=== PATIENT | male | born 1935 | race Caucasian/White ===

== ENCOUNTER 2018-04-19 07:19 | Inpatient (IN) | payer MEDICARE, OTHER ==
[2018-04-19] MEDS: CEFAZOLIN 2 GM/50 ML (PMX) 50 ML IVPB (06:00)
[2018-04-19] MEDS: TRANEXAMIC ACID 1GM/100ML(PMX) 100 ML IVPB ×2 (06:00→12:59)
[~2018-04-19 07:19] MED LIST: CEFAZOLIN 1 GM INJ; DESFLURANE 15 MIN; ROCURONIUM 50 MG INJ; SUCCINYLCHOLINE CHLORIDE 100 MG/5 ML SYG IV
[2018-04-19] MEDS: DEXAMETHASONE 1 MG TAB PO (08:43)
[2018-04-19] MEDS: GABAPENTIN 300 MG CAP PO ×2 (08:43→20:24)
[2018-04-19] MEDS ORDERED: MIDAZOLAM 1 MG/ML 2 ML INJ (09:29)
[2018-04-19] MEDS ORDERED: THROMBIN 5000 UNIT VIAL (09:57)
[2018-04-19] MEDS ORDERED: CA CHLORIDE 10% 10 ML SYRINGE (09:57)
[2018-04-19] MEDS ORDERED: POLYMYXIN/BACITRACIN 1L IRRIG (09:57)
[2018-04-19] MEDS ORDERED: BUPIVACAINE 0.5%/EPI (SDV) 30 ML INJ (09:57)
[2018-04-19] MEDS ORDERED: ONDANSETRON 4 MG INJ (10:58)
[2018-04-19] MEDS ORDERED: DEXAMETHASONE 4 MG/ML 5 ML INJ (10:58)
[2018-04-19] MEDS ORDERED: LIDOCAINE 2% (SDV) 5 ML INJ (11:15)
[2018-04-19] MEDS ORDERED: ETOMIDATE 20 MG INJ (11:15)
[2018-04-19] MEDS: ACETAMINOPHEN 500 MG TAB PO ×4 (12:00→23:56)
[2018-04-19] MEDS: CEFAZOLIN 1 GM/50 ML (PMX) 50 ML IVPB ×2 (12:00→20:21)
[2018-04-19] MEDS ORDERED: LOPERAMIDE 2 MG CAP PO (12:00)
[2018-04-19] MEDS ORDERED: HYDROmorphONE 1 MG/ML SYG IV (12:00)
[2018-04-19] MEDS ORDERED: ZOLPIDEM 5 MG TAB PO (12:00)
[2018-04-19] MEDS ORDERED: NACL 0.9% 3 ML SYG IV (12:00)
[2018-04-19] MEDS ORDERED: KETOROLAC 15 MG INJ IV (12:00)
[2018-04-19] MEDS ORDERED: DIPHENHYDRAMINE 50 MG INJ IV (12:00)
[2018-04-19] MEDS: DEXAMETHASONE 2 MG TAB PO ×4 (12:00→23:56)
[2018-04-19] MEDS ORDERED: oxyCODONE 5 MG TAB PO ×3 (12:00)
[2018-04-19] MEDS ORDERED: SUGAMMADEX SODIUM 200 MG/2 ML VIAL IV (12:17)
[2018-04-19] MEDS: BUPIVACAINE 0.5% (SDV) 30 ML, morphine SULFATE (PF) 8 MG, EPINEPHrine 0.3 MG, KETOROLAC... IRR (12:43)
[2018-04-19] MEDS ORDERED: HYDROmorphONE 1 MG/5 ML IV SYRINGE IV ×2 (13:00)
[2018-04-19] MEDS: ONDANSETRON 4 MG INJ IV (18:25)
[2018-04-19] MEDS: SENNA/DOCUSATE NA (8.6MG/50MG) TAB PO (20:24)
[2018-04-20] MEDS: CEFAZOLIN 1 GM/50 ML (PMX) 50 ML IVPB (04:08)
[2018-04-20] MEDS: MAGNESIUM HYDROXIDE 30ML CUP PO (05:07)
[2018-04-20] MEDS: DEXAMETHASONE 2 MG TAB PO (05:08)
[2018-04-20] MEDS: ACETAMINOPHEN 500 MG TAB PO ×2 (05:08→12:03)
[2018-04-20] MEDS: SENNA/DOCUSATE NA (8.6MG/50MG) TAB PO (08:47)
[2018-04-20] MEDS ORDERED: NON-FORMULARY/PATIENT OWN MED (Sofosbuvir/Velpatasvir (Epclusa 400 mg-100 mg Tablet) 1 EAC PO (09:00)
== END 2018-04-20 13:45 | disposition home or self-care (01) | DRG 483 ==
LOC: REC 07:19 → MS1 13:50
PROC: 0RRK00Z Replacement of Left Shoulder Joint with Reverse Ball and Socket Synthetic Substitute, Open Approach (ICD-10-PCS; principal; 2018-04-19 10:00)
DX: M19.012 Primary osteoarthritis, left shoulder (principal); M75.102 Unspecified rotator cuff tear or rupture of left shoulder, not specified as traumatic; B18.2 Chronic viral hepatitis C
CPT/HCPCS: 73030; 86999; 88304; 88311; 97167